=== PATIENT | female | born 1945 | race Caucasian/White ===

== ENCOUNTER → 2017-01-23 | Outpatient (CLI) | payer MEDICARE, BC ==
--- NOTE | 2017-01-23 09:30 | RAD ---
Abdominal ultrasound 01/23/2017 at 0816 hours Indication: Abdominal lump, mass Comparison: None available Technique: Sonographic imaging of the abdomen was performed utilizing grayscale and color Doppler. Findings: There is increased echogenicity of the hepatic parenchyma suggestive of diffuse basilar disease, most commonly hepatic steatosis. Hepatopedal flow is identified within the liver which measures maximally 14.7 cm. Gallstones are noted within the gallbladder. No periprosthetic fluid or gallbladder wall thickening. Common duct measures 3.5 mm. No free fluid is identified within the abdomen. Aorta is normal in caliber with scattered atherosclerotic calcification. IVC is patent. Right kidney measures 10.9 x 5.6 x 4.1 cm. Left kidney measures 10.5 x 4.9 x 5.1 cm. Echogenic focus in the mid to inferior pole the left kidney measures 10 mm without definite posterior shadowing or twinkle artifact. There is a 2.6 x 2.2 x 2.3 cm simple appearing cyst in superior pole of the left kidney. Or suspicious renal masses are identified. No hydronephrosis. Imaging was performed in the region of patient's reported lump, in the left mid abdominal area. There is normal subcutaneous fat in this region. No underlying mass or fluid collection is identified, by ultrasound. Spleen measures 9.4 cm and is within normal limits. Impression: 1. Cholelithiasis without sonographic evidence for acute cholecystitis. 2. The patient's reported area of the abdominal lump, there is no sonographic abnormality identified. 3. Simple appearing cyst in the superior pole the left kidney. There is a 10 mm echogenic focus which may represent debris within a cyst or calyceal diverticulum versus a non-shadowing calculus. Further evaluation with CT with and without contrast may be of benefit.
--- NOTE | 2017-01-23 11:27 | RAD ---
DATE: 01/23/2017 EXAM: MAMMO SHERI OLAF WELLERAT, BREAST RIGHT HISTORY: Palpable mass in the right axilla. COMPARISON: Prior mammogram from 03/03/2016, 12/17/2013 This study was interpreted with the benefit of Computerized Aided Detection (CAD). The breast parenchyma is heterogeneously dense, which could reduce sensitivity of mammography. Breast parenchyma level C. FINDINGS: Bilateral CC and MLO views including tomosynthesis of each breast was performed. No suspicious microcalcifications, masses or areas of architectural distortion identified. Findings are stable from the prior mammogram. Due to patient's palpable abnormality, targeted ultrasound was performed in the right axilla. A 3.7 x 1.2 x 2.50 cm circumscribed iso to hyperechoic mass is identified in the right axilla. There is no posterior shadowing or suspicious features. Findings are compatible with a lipoma. IMPRESSION: 1. Right mammogram: Benign findings. Recommended clinical management of right axillary lipoma. 2. Left mammogram: Negative. Recommend annual screening mammogram. BI-RADS CATEGORY: 2 BENIGN FINDING(S) RECOMMENDED FOLLOW-UP: 12M 12 MONTH FOLLOW-UP PQRS compliance statement: Patient information was entered into a reminder system with a target due date 01/23/2018 for the next mammogram. Mammography is a sensitive method for finding small breast cancers, but it does not detect them all and is not a substitute for careful clinical examination. A negative mammogram does not negate a clinically suspicious finding and should not result in delay in biopsying a clinically suspicious abnormality. "Our facility is accredited by the [employer] Mammography Program."
== END | disposition home or self-care (01) ==
LOC: US 07:57
PROVIDERS: ATTEND Internal Medicine
DX: N64.4 Mastodynia (principal); R19.00 Intra-abdominal and pelvic swelling, mass and lump, unspecified site
CPT/HCPCS: 76641; 76700; G0204; G0279; 77062; 77066

== ENCOUNTER → 2020-04-20 | Outpatient (CLI) | payer MEDICARE, OTHER ==
--- NOTE | 2020-04-20 13:33 | RAD ---
EXAMINATION: RENAL COMPLETE BILATERAL CLINICAL HISTORY: Renal cyst, hypertension TECHNIQUE: Grayscale sonographic imaging of the kidneys and urinary bladder obtained with color Doppler imaging and spectral Doppler analysis as indicated. COMPARISON: Abdominal ultrasound 01/23/2017 FINDINGS: Right Kidney: - Renal length: 10.7 cm - Parenchyma: Normal parenchymal echogenicity. Normal parenchymal thickness. - Collecting system: No hydronephrosis. - Calculus: No echogenic, shadowing calculus. - Lesion: 1.2 cm simple appearing cyst in the upper pole, not visualized on prior study. Left Kidney: - Renal length: 10.6 cm - Parenchyma: Normal parenchymal echogenicity. Normal parenchymal thickness. - Collecting system: No hydronephrosis. - Calculus: No echogenic, shadowing calculus. - Lesion: Multiple simple appearing cysts measuring up to 2.9 cm in the upper pole, previously 2.6 cm. Bladder: Normal sonographic appearance. Prevoid volume 129 mL, no post void images obtained. Other: Partially visualized aorta and IVC unremarkable. IMPRESSION: Bilateral simple appearing renal cysts, greater on the left. Electronically signed by: Waqar Gallo DO (04/20/2020 1:30 PM) [facility]
== END ==
LOC: US 10:57
PROVIDERS: ATTEND Family Medicine
DX: N28.1 Cyst of kidney, acquired (principal); I10 Essential (primary) hypertension
CPT/HCPCS: 76770